=== PATIENT | female | born 1990 | race Caucasian/White ===

== ENCOUNTER 2020-05-12 07:28 | Emergency (ER) | payer OTHER ==
[2020-05-12 07:42] VITALS: O2SAT 98
--- NOTE | 2020-05-12 07:58 | ERPHSYRPT ---
- History of Present Illness Time Seen by Provider: 05/12/20 07:44 Source: patient Exam Limitations: no limitations Patient Subjective Stated Complaint: Pt states "I tripped last night and hurt my ankle." Triage Nursing Assessment: Pt presented alert and oriented X 3, skin pwd Pt able to sepak in clear full sentences. Pt right ankle lateral pain to touch and move. Physician History: Patient is a 29-year-old female presents to our ED with complaints of right ankle pain. Patient states she was "drinking" last night and twisted her ankle. Patient states the pain was not "that bad". Patient states she awoke this mo rning and experienced severe pain upon weightbearing. Pain described as an ache that is well localized primarily to the lateral aspect of her right ankle. Pain worse with movement weightbearing and palpation. Pain improved with rest. No other complaints. No foot pain. No knee or hip pain. Pain is mild to moderate in intensity. Patient has little pain at rest. Patient took 4 ibuprofen this morning prior to arrival. No associated numbness tingling or weakness. Patient voices no other complaints at this time. Method of Injury: twisted Occurred: yesterday Quality: intermittent Severity of Pain-Max: moderate Severity of Pain-Current: mild Lower Extremities Pain: ankle: right Modifying Factors: Improves With: movement, pain medication Associated Symptoms: none Allergies/Adverse Reactions: No Known Drug Allergies Allergy (Verified 05/12/20 07:41) Home Medications: Alprazolam 1 mg [Xanax 1 mg] 1 tab PO DAILY 05/12/20 [History] Ashford Carbonate 300 mg [Ashford Carbonate 300 MG] 300 mg PO DAILY 05/12/20 [History] Lurasidone HCl [Latuda] 80 mg PO DAILY 05/12/20 [History] Hx Tetanus, Diphtheria Vaccination/Date Given: Yes Hx Influenza Vaccination/Date Given: No Hx Pneumococcal Vaccination/Date Given: No Immunizations Up to Date: Yes Travel Risk - International Travel Have you traveled outside of the country in past 3 weeks: No - Coronavirus Screening Are you exhibiting any of the following symptoms?: No Close contact with a COVID-19 positive Pt in past 14-21 Days: No - Review of Systems Constitutional: No Symptoms, No Fever, No Chills Eyes: No Symptoms Ears, Nose, & Throat: No Symptoms Respiratory: No Symptoms, No Cough, No Dyspnea Cardiac: No Symptoms, No Chest Pain, No Edema, No Syncope Abdominal/Gastrointestinal: No Symptoms, No Abdominal Pain, No Nausea, No Vomiting, No Diarrhea Genitourinary Symptoms: No Symptoms, No Dysuria Musculoskeletal: No Symptoms, No Back Pain, No Neck Pain Skin: No Symptoms, No Rash Neurological: No Symptoms, No Dizziness, No Focal Weakness, No Sensory Changes Psychological: No Symptoms Endocrine: No Symptoms Hematologic/Lymphatic: No Symptoms Immunological/Allergic: No Symptoms All Other Systems: Reviewed and Negative - Past Medical History Pertinent Past Medical History: Yes Other Medical History: depression, anxiety - Past Surgical History Past Surgical History: Yes Other Surgical History: knee surgery - Social History Smoking Status: Current every day smoker How long have you smoked: years Exposure to second hand smoke: Yes Drug Use: none Patient Lives Alone: No - Female History Hx Last Menstrual Period: 4 months ago Hx Now: No - Nursing Vital Signs Nursing Vital Signs: Initial Vital Signs Temperature 97.6 F 05/12/20 07:34 Pulse Rate 94 H 05/12/20 07:34 Respiratory Rate 18 05/12/20 07:34 Blood Pressure 110/87 05/12/20 07:34 O2 Sat by Pulse Oximetry 98 05/12/20 07:34 Pain Scale Pain Intensity 8 - Physical Exam General Appearance: no apparent distress, alert Eyes, Ears, Nose, Throat Exam: normal ENT inspection, pharynx normal, moist mucous membranes Neck Exam: normal inspection, non-tender, full range of motion Cardiovascular/Respiratory Exam: normal breath sounds, regular rate/rhythm, no respiratory distress, normal peripheral pulses Gastrointestinal/Abdominal Exam: non-tender, soft, No tenderness Back Exam: normal inspection, No vertebral tenderness Hips Exam: bilateral: non-tender, normal inspection, normal range of motion, no evidence of injury Legs Exam: bilateral leg: non-tender, normal inspection, normal range of motion, no evidence of injury Knees Exam: bilateral knee: non-tender, normal inspection, normal range of motion, no evidence of injury Ankle Exam: right ankle: bone tenderness, pain, soft tissue tenderness, swelling, other (Tenderness to palpation at the lateral aspect of right ankle particularly over the right ATFL ligament. Overlying soft tissue intact. No open or draining lesions. Compartments are soft. Cap refill less than 2 seconds. Extremity is pink warm and well-perfused. No pain at the adjacent joints. Patient has no other complaints.) Foot Exam: bilateral foot: non-tender, normal inspection, normal range of motion, no evidence of injury Neuro/Tendon Exam: normal sensation, normal motor functions Mental Status Exam: alert, oriented x 3, cooperative Skin Exam: normal color, warm, dry SpO2 Interpretation: normal SpO2: 98 O2 Delivery: Room Air - Course Nursing assessment & vital signs reviewed: Yes - Radiology Exams Ankle X-ray Interpretation: Teleradiologist Report (Negative for fracture dislocation. Soft tissue swelling.) Ordered Tests: Active Orders 24 hr Category Date Time Status Splint STAT Care 05/12/20 08:29 Active ANKLE (3 VIEWS) Stat Exams 05/12/20 07:52 Taken - Progress Progress: improved Progress Note: 05/12/20 08:42 Patient reassessed. She is well. Pain well controlled. Patient took 800 mg of ibuprofen prior to arrival. Patient received bilateral axillary crutches as well as a right ankle air splint. Patient to follow-up with her primary care doctor within 48 hours for reevaluation. Counseled pt/family regarding: diagnosis, need for follow-up, rad results - Departure Departure Disposition: Home Clinical Impression: Ankle fracture Condition: Stable Critical Care Time: No Referrals: TINO BARRAZA [NON-STAFF Y W/O PRIVILEGES] - Instructions: Ankle Sprain (DC) Additional Instructions: Discharge/Care Plan ELSA WEEMS was seen on 05/12/20 in the Emergency Room. The patient was counseled regarding Diagnosis,Lab results, Imaging studies, need for follow up and when to return to the Emergency Room. Prescriptions given: Discharge Note I have spoken with the patient and/or caregivers. I have explained the patient's condition, diagnosis and treatment plan based on the information available to me at this time. I have answered the patient's and/or caregiver's questions and addressed any concerns. The patient and/or caregivers have as good understanding of the patient's diagnosis, condition and treatment plan as can be expected at this point. The vital signs have been stable. The patient's condition is stable and appropriate for discharge from the emergency department. The patient will pursue further outpatient evaluation with the primary care physician or other designated or consulting physician as outlined in the discharge instructions. The patient and/or caregivers are agreeable to this plan of care and follow-up instructions have been explained in detail. The patient and/or caregivers have received these instruction. The patient/and or caregivers are aware that any significant change in condition or worsening of symptoms should prompt an immediate return to this or the closest emergency department or call 911.
[2020-05-12 08:36] VITALS: BP 106/68; PULSE 88
--- NOTE | 2020-05-12 09:50 | XRAY ---
Indication: Pain following fall. Comparison: None 3 view right ankle demonstrates mild lateral soft tissue swelling and tiny plantar heel spur. No other bony, articular, or soft tissue abnormalities.
== END 2020-05-12 08:58 | disposition home or self-care (01) ==
LOC: ED 07:28
DX: S82.891A Other fracture of right lower leg, initial encounter for closed fracture (principal); X50.9XXA Other and unspecified overexertion or strenuous movements or postures, initial encounter; M25.571 Pain in right ankle and joints of right foot
CPT/HCPCS: 73610; 99283

== ENCOUNTER 2020-12-05 07:34 | Emergency (ER) | payer OTHER ==
[2020-12-05 08:11] LABS: Appearance SLIGHTLY CLOUDY (CLEAR); Bilirubin NEGATIVE (NEGATIVE); Blood NEGATIVE Ery/ul (0-5); Epithelial Cells RARE /HPF (FEW); Glucose NEGATIVE (NEGATIVE); Ketones NEGATIVE (NEGATIVE); Leukocyte Esterase NEGATIVE (NEGATIVE); Mucus SLIGHT /HPF (NEGATIVE); Nitrite NEGATIVE (NEGATIVE); Protein,Urine Dip 30 (Negative); Specific Gravity 1.026 (1.005-1.025); Urobilinogen 2 mg/dL (0-1); WBC 0-2 /HPF (0-5)
--- NOTE | 2020-12-05 08:33 | ERPHSYRPT ---
- History of Present Illness Time Seen by Provider: 12/05/20 07:40 Source: patient Exam Limitations: no limitations Patient Subjective Stated Complaint: belly button pain Triage Nursing Assessment: pt to ED c/o "belly button pain" onset yeterday. hx hernia just above umbilicus but has not had issues since she has lsot some weight. rates 1/10 pain now atrest but up to 6/10 when palpating umbilicus and changing position. "I can feel like a knot inside my belly button when I feel it." Physician History: Patient is a 30-year-old female presents to our ED with complaints of pain at her navel. Pain has been ongoing for 1 day. Patient has a history of umbilical hernia. Patient states that it feels as though her hernia has returned. Pain described as an ache that is well localized. No radiation. Pain improves upon rest. Pain worse with palpation. No trauma. No fever. No nausea or vomiting. No diarrhea. No rash. Symptoms are mild to moderate in intensity. Patient voices no other complaints or concerns at this time. Timing/Duration: yesterday Severity: moderate Modifying Factors: Improves With: nothing Associated Symptoms: denies symptoms Allergies/Adverse Reactions: No Known Drug Allergies Allergy (Verified 12/05/20 07:47) Home Medications: Alprazolam 1 mg [Xanax 1 mg] 1 tab PO DAILY 05/12/20 [History] Cariprazine HCl [Vraylar] 3 mg PO DAILY 12/05/20 [History] Hx Tetanus, Diphtheria Vaccination/Date Given: Yes Hx Influenza Vaccination/Date Given: No Hx Pneumococcal Vaccination/Date Given: No Immunizations Up to Date: Yes Travel Risk - International Travel Have you traveled outside of the country in past 3 weeks: No - Coronavirus Screening Are you exhibiting any of the following symptoms?: Yes Symptoms: Cough: New Onset Close contact with a COVID-19 positive Pt in past 14-21 Days: No - Review of Systems Constitutional: No Symptoms, No Fever, No Chills Eyes: No Symptoms Ears, Nose, & Throat: No Symptoms Respiratory: No Symptoms, No Cough, No Dyspnea Cardiac: No Symptoms, No Chest Pain, No Edema, No Syncope Abdominal/Gastrointestinal: No Symptoms, No Abdominal Pain, No Nausea, No Vomiting, No Diarrhea Genitourinary Symptoms: No Symptoms, No Dysuria Musculoskeletal: No Symptoms, No Back Pain, No Neck Pain Skin: No Symptoms, No Rash Neurological: No Symptoms, No Dizziness, No Focal Weakness, No Sensory Changes Psychological: No Symptoms Endocrine: No Symptoms Hematologic/Lymphatic: No Symptoms Immunological/Allergic: No Symptoms All Other Systems: Reviewed and Negative - Past Medical History Pertinent Past Medical History: Yes Psycho-Social History: Anxiety, Depression Other Medical History: depression, anxiety - Past Surgical History Past Surgical History: Yes Musculoskeletal: Orthopedic Surgery Female Surgical History: Dilation & Curettage Other Surgical History: L knee surgery - Social History Smoking Status: Current every day smoker How long have you smoked: since 16yo Exposure to second hand smoke: No Drug Use: marijuana Patient Lives Alone: No - Female History Hx Now: No (LMP 2 wks ago) - Nursing Vital Signs Nursing Vital Signs: Initial Vital Signs Temperature 98.2 F 12/05/20 07:39 Pulse Rate 91 H 12/05/20 07:39 Respiratory Rate 16 12/05/20 07:39 Blood Pressure 108/79 12/05/20 07:39 O2 Sat by Pulse Oximetry 91 L 12/05/20 07:39 Pain Scale Pain Intensity 1 - Physical Exam General Appearance: no apparent distress, alert Eye Exam: PERRL/EOMI, eyes nml inspection Ears, Nose, Throat Exam: normal ENT inspection, TMs normal, pharynx normal, moist mucous membranes Neck Exam: normal inspection, non-tender, supple, full range of motion Respiratory Exam: normal breath sounds, lungs clear, No respiratory distress Cardiovascular Exam: regular rate/rhythm, normal heart sounds, normal peripheral pulses Gastrointestinal/Abdomen Exam: soft, normal bowel sounds, No tenderness, No mass Back Exam: normal inspection, normal range of motion, No CVA tenderness, No vertebral tenderness Extremity Exam: normal inspection, normal range of motion, pelvis stable Neurologic Exam: alert, oriented x 3, cooperative, normal mood/affect, sensation nml, No motor deficits Skin Exam: normal color, warm, dry, No rash Lymphatic Exam: No adenopathy SpO2 Interpretation: borderline oxygenation SpO2: 91 O2 Delivery: Room Air - Course Nursing assessment & vital signs reviewed: Yes - CT Exams Abdomen/Pelvis CT Interpretation: Tele-radiologist Report (4 mm appendicolith, possible rupture/leaking cyst with small fluid in the cul-de-sac, punctate nonobstructing kidney stones, splenic calcified granuloma.) Ordered Tests: Active Orders 24 hr Category Date Time Status ABDOMEN AND PELVIS W/0 CONTRAS [CT] Stat Exams 12/05/20 07:50 Completed HCG,QUALITATIVE URINE Stat Lab 12/05/20 07:58 Completed UA W/RFX UR CULTURE Stat Lab 12/05/20 07:58 Completed Lab/Rad Data: Laboratory Results 12/05/20 12/05/20 Range/Units 07:58 07:58 Urine Color YELLOW (YELLOW) Urine Appearance SLIGHTLY CLOUDY (CLEAR) Urine pH 7.0 (5-6) Ur Specific [place] 1.026 (1.005-1.025) Urine Protein 30 (Negative) Urine Ketones NEGATIVE (NEGATIVE) Urine Blood NEGATIVE (0-5) Eulalio/ul Urine Nitrite NEGATIVE (NEGATIVE) Urine Bilirubin NEGATIVE (NEGATIVE) Urine Urobilinogen 2 (0-1) mg/dL Ur Leukocyte Esterase NEGATIVE (NEGATIVE) Urine WBC (Auto) 0-2 (0-5) /HPF Urine RBC (Auto) 3-5 (0-2) /HPF U Epithel Cells (Auto) RARE (FEW) /HPF Urine Bacteria (Auto) NONE (NEGATIVE) /HPF Urine Mucus (Auto) SLIGHT (NEGATIVE) /HPF Urine Culture Reflexed NO (NO) Urine Glucose NEGATIVE (NEGATIVE) mg/dL Urine HCG, Qual NEGATIVE (Negative) - Progress Progress: improved Progress Note: 12/05/20 09:51 Patient is a smoker. She has a history of chronic cough. Patient states she been coughing a little more frequently. Patient is currently on albuterol inhaler which was given to her by her [employer] doctor to address her coughing. This has improved her symptoms. But it is likely that her periumbilical pain is stemming from the constant coughing which is now gradually improving. Lungs are clear. No hernia observed on CT scan. Patient requesting discharge because she has to be worked at 11 AM. No indication for medications at this time. Patient aware of all of our findings as documented in our diagnoses of this chart. Patient agrees to follow-up with her primary care doctor within 48 hours. Patient understands that stopping smoking will help her symptoms. Patient states she is trying to stop smoking. Patient voices no other complaints at this time. She will follow-up with her primary care doctor as described. Will discharge at this time. Counseled pt/family regarding: lab results, diagnosis, need for follow-up, rad results, smoking cessation - Departure Departure Disposition: Home Clinical Impression: Periumbilical abdominal pain, Proteinuria, Appendicolith, Nephrolithiasis, Pelvic fluid collection Condition: Stable Critical Care Time: No Referrals: YAZMIN PASTOR MD [Primary Care Provider] - Additional Instructions: Discharge/Care Plan ELSA WEEMS was seen on 12/05/20 in the Emergency Room. The patient was counseled regarding Diagnosis,Lab results, Imaging studies, need for follow up and when to return to the Emergency Room. Prescriptions given: Discharge Note I have spoken with the patient and/or caregivers. I have explained the patient's condition, diagnosis and treatment plan based on the information available to me at this time. I have answered the patient's and/or caregiver's questions and addressed any concerns. The patient and/or caregivers have as good understanding of the patient's diagnosis, condition and treatment plan as can be expected at this point. The vital signs have been stable. The patient's condition is stable and appropriate for discharge from the emergency department. The patient will pursue further outpatient evaluation with the primary care physician or other designated or consulting physician as outlined in the discharge instructions. The patient and/or caregivers are agreeable to this plan of care and follow-up instructions have been explained in detail. The patient and/or caregivers have received these instruction. The patient/and or caregivers are aware that any significant change in condition or worsening of symptoms should prompt an immediate return to this or the closest emergency department or call 911.
[2020-12-05 08:59] VITALS: BP 92/44
[2020-12-05 09:03] VITALS: PULSE 69
[2020-12-05 09:24] VITALS: O2SAT 91
--- NOTE | 2020-12-05 09:29 | XRAY ---
Indication: Abdomen pain. Umbilical hernia. Multiple contiguous axial images obtained through the abdomen and pelvis without contrast as ordered. Comparison: None Lung bases demonstrates bibasilar dependent atelectasis. Heart is not enlarged. Noncontrasted stomach and bowel loops appear nonobstructed. Normal appendix with incidental 4 mm appendicolith. Small cul-de-sac free fluid presumed physiologic from rupture/leaking cyst. No free air. Right mid kidney demonstrates nonobstructing punctate calculus. Splenic calcified granulomas. Remaining liver, gallbladder, pancreas, spleen, adrenal glands, kidneys, ureters, bladder, uterus, and aorta appear unremarkable for noncontrast exam. Osseous structures intact. No ventral, umbilical, or inguinal hernias. Impression: 1. Cul-de-sac physiologic free fluid. 2. Appendicolith without appendicitis. 3. Nonobstructing right renal punctate calculus. 4. Remaining CT abdomen/pelvis without contrast exam is negative.
== END 2020-12-05 09:56 | disposition home or self-care (01) ==
LOC: ED 07:34
DX: R10.33 Periumbilical pain (principal); R80.9 Proteinuria, unspecified; N20.0 Calculus of kidney; R19.8 Other specified symptoms and signs involving the digestive system and abdomen; F17.200 Nicotine dependence, unspecified, uncomplicated
CPT/HCPCS: 74176; 81001; 84703; 99284

== ENCOUNTER 2021-12-24 09:52 | Emergency (ER) | payer OTHER ==
--- NOTE | 2021-12-24 10:22 | ERPHSYRPT ---
- History of Present Illness Time Seen by Provider: 12/24/21 10:15 Source: patient Exam Limitations: no limitations Patient Subjective Stated Complaint: Pt states "I did a home test and it was positive, I have a cough and a headache but I need a positive test for work." Triage Nursing Assessment: Pt presented alert and oriented X 3, skin wpd PT ambulates with an upright steady gait, able to speak in clear full sentences. Pt in no apaprent respiratory distress. Physician History: Pt developed URI symptoms with headache, and took home test which is positive for Covid. She needs the PCR test for her work as they are not accepting the home test. She has no SOBreath, N/V, or abd pain. minor very brief twinge in chest with cough nonradiating consistent with URI symptoms and not present at other times. normal pulse ox. Heart score <3. Percs out , (HR back down to 70s now). Chest clear. pharynx with erythema swolling OK no menigismus. no rash, no ext erythema or swelling neg homans. Discussed potential risks also to monitor for with covid including blood clots and also other risks for headaches to consider rule out and patient chooses outpt f/u with PCP rather than further workup in ER or hospital at this time for cardio/PE, intracrainial pathology and this is reasonable given findings and history as presenting. She is advised that additional pathology could be evolving and become serious, unserstands and has the capacity to make this choice. Timing/Duration: day(s) Cough Quality/Degree: mild, dry cough Possible Cause: no prior episodes Modifying Factors: Improves With: coughing Associated Symptoms: cough, headache, nasal congestion, nasal drainage, other (brief sharp twinge with cough), No lightheadedness, No shortness of breath Allergies/Adverse Reactions: No Known Drug Allergies Allergy (Verified 12/05/20 07:47) Home Medications: ALPRAZolam 1 MG [Xanax 1 mg] 1 tab PO DAILY 05/12/20 [History] Cariprazine HCl [Vraylar] 3 mg PO DAILY 12/05/20 [History] Hx Tetanus, Diphtheria Vaccination/Date Given: Yes Hx Influenza Vaccination/Date Given: No Hx Pneumococcal Vaccination/Date Given: No Immunizations Up to Date: Yes Travel Risk - International Travel Have you traveled outside of the country in past 3 weeks: No - Coronavirus Screening Are you exhibiting any of the following symptoms?: No Close contact with a COVID-19 positive Pt in past 14-21 Days: No - Vaccine Status Have you recieved a Covid-19 vaccination: Yes Cloth Shader: Pfizer - Vaccination Dates Date of 2cond Vaccination (if applicable): 07/2021 - Review of Systems Constitutional: Fatigue, No Fever, No Chills Eyes: No Symptoms Ears, Nose, & Throat: Nose Congestion, Nose Discharge Respiratory: Cough, No Dyspnea, No Stridor, No Wheezing Cardiac: No Chest Pain, No Edema, No Syncope Abdominal/Gastrointestinal: No Abdominal Pain, No Nausea, No Vomiting, No Diarrhea Genitourinary Symptoms: No Dysuria Musculoskeletal: No Back Pain, No Neck Pain Skin: No Rash Neurological: No Dizziness, No Focal Weakness, No Sensory Changes Psychological: No Symptoms Endocrine: No Symptoms Hematologic/Lymphatic: No Symptoms Immunological/Allergic: No Symptoms All Other Systems: Reviewed and Negative - Past Medical History Pertinent Past Medical History: Yes Psycho-Social History: Anxiety, Depression Other Medical History: depression, anxiety - Past Surgical History Past Surgical History: Yes Musculoskeletal: Orthopedic Surgery Female Surgical History: Dilation & Curettage Other Surgical History: L knee surgery - Social History Smoking Status: Current every day smoker How long have you smoked: since 16yo Exposure to second hand smoke: No Drug Use: marijuana Patient Lives Alone: No - Female History Hx Last Menstrual Period: 12/14/2020 Hx Now: No - Nursing Vital Signs Nursing Vital Signs: Initial Vital Signs Temperature 98.6 F 12/24/21 09:59 Pulse Rate 103 H 12/24/21 09:59 Respiratory Rate 20 12/24/21 09:59 Blood Pressure 144/89 12/24/21 09:59 O2 Sat by Pulse Oximetry 99 12/24/21 09:59 Pain Scale Pain Intensity 0 - Physical Exam General Appearance: no apparent distress, alert Eye Exam: PERRL/EOMI, eyes nml inspection Ears, Nose, Throat Exam: normal ENT inspection, TMs normal, pharynx normal, moist mucous membranes Neck Exam: normal inspection, non-tender, supple, full range of motion Respiratory Exam: normal breath sounds, lungs clear, No respiratory distress Cardiovascular Exam: regular rate/rhythm, normal heart sounds Gastrointestinal/Abdomen Exam: soft, No tenderness Pelvic Exam: deferred Rectal Exam: deferred Back Exam: normal inspection, No CVA tenderness, No vertebral tenderness Extremity Exam: normal inspection, normal range of motion Neurologic Exam: alert, oriented x 3, cooperative, normal mood/affect, sensation nml, No motor deficits Skin Exam: normal color, warm, dry, No rash Lymphatic Exam: No adenopathy SpO2: 99 - Course Nursing assessment & vital signs reviewed: Yes - Progress Air Movement: good Blood Culture(s) Obtained: No Antibiotics given: No Counseled pt/family regarding: diagnosis, need for follow-up - Departure Departure Disposition: Home Clinical Impression: COVID-19 Condition: Good Critical Care Time: No Referrals: YAZMIN PASTOR MD [Primary Care Provider] - Follow up/PCP as directed Instructions: Coronavirus Disease 2019 (COVID-19) (DC) Additional Instructions: followup for your test results and in contact with your Dr. Meanwhile self quarantine yourself and contacts. There is some increased risk of complications such as blood clots with Covid and so watch for any swelling or redness or shortness of breath. Return meantime if any symptoms of concern such as short of breath trouble swallowing more sever headache or chest pain or symptoms of concern. Followup with your to recheck blood pressure.
[2021-12-24 10:47] VITALS: BP 138/84; PULSE 94; O2SAT 98
== END 2021-12-24 11:02 | disposition home or self-care (01) ==
LOC: ED 09:52
DX: U07.1 COVID-19 (principal); R05.9 Cough, unspecified; R51.9 Headache, unspecified; R09.81 Nasal congestion; Z72.0 Tobacco use
CPT/HCPCS: 99283; U0003

== ENCOUNTER 2022-02-18 08:41 | Emergency (ER) | payer OTHER ==
--- NOTE | 2022-02-18 09:54 | ERPHSYRPT ---
- History of Present Illness Time Seen by Provider: 02/18/22 08:48 Source: patient Exam Limitations: no limitations Patient Subjective Stated Complaint: Patient states she had a positive test 02/14/22 and started bleeding 02/16/22. Describes the blood as dark. Unknown amount. Triage Nursing Assessment: Patient to ed for . States she has been bleeding since 02/16/22. Physician History: 31-year-old female presented in the ER with chief complaint of vaginal bleeding last 2 days. Patient does report she missed her routine cycle date and did home test on 14 February which was positive. Denies any pelvic cramping/pain/passing tissues. No urinary complaints. Wants to make sure she is or not. Allergies/Adverse Reactions: No Known Drug Allergies Allergy (Verified 02/18/22 09:20) Home Medications: ALPRAZolam 1 MG [Xanax 1 mg] 1 tab PO DAILY 05/12/20 [History] Cariprazine HCl [Vraylar] 3 mg PO DAILY 12/05/20 [History] Hx Tetanus, Diphtheria Vaccination/Date Given: Yes Hx Influenza Vaccination/Date Given: No Hx Pneumococcal Vaccination/Date Given: No Travel Risk - International Travel Have you traveled outside of the country in past 3 weeks: No - Coronavirus Screening Are you exhibiting any of the following symptoms?: No Close contact with a COVID-19 positive Pt in past 14-21 Days: No - Vaccine Status Have you recieved a Covid-19 vaccination: Yes 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[employer] - Vaccination Dates Date of 2cond Vaccination (if applicable): unknown - Review of Systems Constitutional: No Symptoms Ears, Nose, & Throat: No Symptoms Respiratory: No Symptoms Cardiac: No Symptoms Abdominal/Gastrointestinal: No Symptoms Genitourinary Symptoms: Vaginal Bleeding Musculoskeletal: No Symptoms Skin: No Symptoms Neurological: No Symptoms Psychological: No Symptoms Endocrine: No Symptoms Hematologic/Lymphatic: No Symptoms Immunological/Allergic: No Symptoms - Past Medical History Pertinent Past Medical History: Yes Psycho-Social History: Anxiety, Depression Other Medical History: depression, anxiety - Past Surgical History Past Surgical History: Yes Musculoskeletal: Orthopedic Surgery Female Surgical History: Dilation & Curettage Other Surgical History: L knee surgery - Social History Smoking Status: Current every day smoker How long have you smoked: since 16yo Exposure to second hand smoke: No Drug Use: marijuana Patient Lives Alone: No - Female History Hx Last Menstrual Period: 01/14/22 Hx Now: Yes - Nursing Vital Signs Nursing Vital Signs: Initial Vital Signs Temperature 98.2 F 02/18/22 09:10 Pulse Rate 80 02/18/22 09:10 Respiratory Rate 20 02/18/22 09:10 Blood Pressure 116/68 02/18/22 09:10 O2 Sat by Pulse Oximetry 97 02/18/22 09:10 Pain Scale Pain Intensity 0 - Physical Exam General Appearance: no apparent distress, alert Eye Exam: PERRL/EOMI, eyes nml inspection Ears, Nose, Throat Exam: normal ENT inspection, pharynx normal Neck Exam: normal inspection, full range of motion Respiratory Exam: normal breath sounds, lungs clear Cardiovascular Exam: regular rate/rhythm, normal heart sounds Gastrointestinal/Abdomen Exam: soft, normal bowel sounds, No tenderness Back Exam: normal inspection, normal range of motion Extremity Exam: normal inspection, normal range of motion Neurologic Exam: alert, oriented x 3, cooperative Skin Exam: normal color SpO2 Interpretation: normal SpO2: 97 O2 Delivery: Room Air Ordered Tests: Active Orders 24 hr Category Date Time Status OB TRANSVAGINAL [US] Stat Exams 02/18/22 11:27 Taken HCG, Quantitative (Inhouse) Stat Lab 02/18/22 09:40 Completed HCG,QUALITATIVE URINE Stat Lab 02/18/22 09:20 Completed Lab/Rad Data: Laboratory Results 02/18/22 02/18/22 Range/Units 09:40 09:20 Beta HCG, Quant 133.40 mIU/ml Urine HCG, Qual POSITIVE (Negative) - Progress Progress: unchanged Air Movement: good Progress Note: 02/18/22 11:31 Has positive urine test and hCG quant is in 130s, obtain ultrasound with preliminary report did not see any sac /Endometrial thickening. Recommended outpatient follow-up with serial hCG quant check. Discussed signs symptoms of worsening needing return to ER which she seems understanding. Blood Culture(s) Obtained: No Antibiotics given: No Counseled pt/family regarding: lab results, diagnosis, need for follow-up, rad results - Departure Departure Disposition: Home Clinical Impression: Vaginal bleeding Condition: Stable Critical Care Time: No Referrals: MARYBEL GARCIA NP [Primary Care Provider] - Follow up/PCP as directed KAMI ANTONIO [ACTIVE STAFF] - (In 2 days for reevaluation) Instructions: Bleeding With (DC), Ectopic (DC) Additional Instructions: Drink plenty of fluids to keep yourself well-hydrated. Follow-up with primary care for reevaluation and recheck of beta-hCG quant level. Return to ER for worsening vaginal bleeding or if having pelvic pain/cramping etc.
[2022-02-18 11:34] VITALS: BP 127/83; PULSE 68
[2022-02-18 11:35] VITALS: O2SAT 97
--- NOTE | 2022-02-18 18:17 | XRAY ---
Indication: Bleeding. Two-dimensional transvaginal pelvic sonogram performed. Comparison: None Uterus anteverted measuring 7.5 x 4.4 x 5.2 cm. Lower uterine segment demonstrates a 8 mm nabothian cyst. Endometrial stripe measures 2.6 mm. No endometrial cavity mass or fluid collection. Right ovary measures 2.4 x 1.8 x 3.4 cm and the left measures 2.1 x 1.9 x 2.9 cm. Normal follicular cysts and perfusion bilaterally. No suspicious adnexal mass or free fluid. Impression: Nabothian cyst. Remaining transvaginal pelvic sonogram is negative. Comment: Preliminary report was given.
== END 2022-02-18 11:42 | disposition home or self-care (01) ==
LOC: ED 08:41
DX: N93.9 Abnormal uterine and vaginal bleeding, unspecified (principal); Z72.0 Tobacco use; Z79.899 Other long term (current) drug therapy
CPT/HCPCS: 36415; 76817; 84702; 84703; 99283

== ENCOUNTER 2022-03-27 06:32 | Day surgery (SDC) | payer OTHER ==
[2022-03-27] MEDS ORDERED: Lactated Ringers 1,000 ML IV ONE (06:59)
[2022-03-27] MEDS ORDERED: Lactated Ringers 1,000 ML IV SCH (07:00)
[2022-03-27] MEDS ORDERED: CEFAZOLIN 2 GM-D5W BAG** 2 GM/50 ML ML IV ONE (07:18)
[2022-03-27] MEDS ORDERED: CEFAZOLIN 2 GM-D5W BAG** 2 GM/50 ML ML IV SCH (07:30)
[2022-03-27 07:53] LABS: ABO TYPING O; Antibody Screen NEGATIVE (NEGATIVE); RH TYPING POSITIVE
[2022-03-27] MEDS ORDERED: Versed 2 MG/2 ML Injection ONE (08:12)
[2022-03-27] MEDS ORDERED: SUBLIMAZE 100 MCG/2 ML ONE (08:17)
[2022-03-27] MEDS ORDERED: Decadron 4 MG INJ ONE (08:17)
[2022-03-27] MEDS ORDERED: Xylocaine-Mpf 2% 5 Ml Vial ONE (08:17)
[2022-03-27] MEDS ORDERED: Zofran 4 MG/2 ML VIAL ONE (08:17)
[2022-03-27] MEDS ORDERED: DIPRIVAN 200 MG/20 ML IV ONE (08:17)
[2022-03-27] MEDS ORDERED: Hydromorphone 1 mg/ml Injection ONE (09:18)
[2022-03-27 11:31] VITALS: BP 103/56; PULSE 67; O2SAT 98
--- NOTE | 2022-03-28 08:03 | OP ---
SURGERY DATE/TIME: 03/27/2022 0820 PREOPERATIVE DIAGNOSIS: Missed with retained tissue. POSTOPERATIVE DIAGNOSIS: Missed with retained tissue. PROCEDURE: Suction D&C. SURGEON: London Boss D.O. SASH REPAIRER: Lance Ferris certified surgical technician. ANESTHESIA: General. ESTIMATED BLOOD LOSS: Minimal. COMPLICATIONS: None. INDICATIONS: The risks, benefits, indications and alternatives of the procedure were reviewed with the patient prior to procedure. The patient understood the risk of infection, bleeding, bowel injury, bladder injury, ureteral injury, uterine perforation associated with this surgery and desires to have this surgery as a possible means to alleviate her current medical condition. DESCRIPTION OF PROCEDURE AND FINDINGS: At this point the patient is taken to the operating room, given general sedation, placed in dorsal lithotomy position, prepped and draped in the usual sterile fashion. A weighted speculum is then placed in the patient's vagina and the anterior lip of the cervix is grasped with a single tooth tenaculum. Endocervical dilators were advanced through the endocervical canal as means to dilate the cervix and at this point curved suction Vacurette was placed into the fundus of the uterus where the suction machine was turned on and Vacurette taken place retrieving a mild to moderate amount of tissue. After complete suctioning, the instrument was removed and the curette was then placed into the fundus of the uterus and curettage was performed retrieving the remaining endometrial tissue. From this point hemostasis was obtained. From this point again, all instruments were removed from the patient's vaginal region. The patient was taken out of the dorsal lithotomy position, was taken out of anesthesia and was then taken to the recovery room in stable condition. All instruments and laps were accounted for x2.
== END 2022-03-27 10:15 | disposition home or self-care (01) ==
LOC: SDC 06:32
PROVIDERS: ATTEND Obstetrics & Gynecology
DX: O02.1 Missed abortion (principal)
CPT/HCPCS: 36415; 84702; 86850; 86900; 86901; J0690; J1100; J1170; J2250; J2405; J2704; J3010

== ENCOUNTER 2023-06-25 08:34 | Emergency (ER) | payer OTHER ==
[2023-06-25 09:00] VITALS: RESP 18; TEMP 96.5
[2023-06-25] MEDS ORDERED: Zofran 4 MG/2 ML VIAL ONE (09:02)
[2023-06-25] MEDS ORDERED: Sodium Chloride 0.9% 1000 ML 1,000 ML ONE (09:02)
[2023-06-25] MEDS: Zofran 4 MG/2 ML VIAL IV ONE (09:04)
[2023-06-25] MEDS: Sodium Chloride 0.9% 1000 ML 1,000 ML IV STA (09:04)
--- NOTE | 2023-06-25 09:06 | ERPHSYRPT ---
- History of Present Illness Time Seen by Provider: 06/25/23 09:02 Source: patient Exam Limitations: no limitations Patient Subjective Stated Complaint: Vomiting Triage Nursing Assessment: Patient ambulated back to ED and transferred self to bed. Patient A+O X 3. Patient's skin pink, wram and dry. Patient complains of N/V since yesterday. Patient denies pain or discomfort or diarrhea. Abdomen soft and round with BS X 4. Physician History: Patient is a 32-year-old female presents to our ED for evaluation of nausea and vomiting. Symptoms started yesterday. Patient believes she is dehydrated. No abdominal pain. No fever. No other complaints. Patient she is otherwise healthy. Patient voices no other complaints or concerns at this time. Portions of this note were created with voice recognition technology. There may be grammatical, spelling, punctuation or sound alike errors Timing/Duration: yesterday Severity: moderate Modifying Factors: Improves With: nothing Associated Symptoms: denies symptoms, No chest pain, No fever Allergies/Adverse Reactions: No Known Drug Allergies Allergy (Verified 06/25/23 08:52) Home Medications: Lisdexamfetamine Dimesylate [Vyvanse] 1 tab PO DAILY 06/25/23 [History] Hx Tetanus, Diphtheria Vaccination/Date Given: Yes Hx Influenza Vaccination/Date Given: No Hx Pneumococcal Vaccination/Date Given: No Immunizations Up to Date: Yes Travel Risk - International Travel Have you traveled outside of the country in past 3 weeks: No - Coronavirus Screening Are you exhibiting any of the following symptoms?: No Close contact with a COVID-19 positive Pt in past 14-21 Days: No - Vaccine Status Have you recieved a Covid-19 vaccination: Yes 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[email or web address] - Vaccination Dates Date of 2cond Vaccination (if applicable): unknown - Review of Systems Constitutional: No Symptoms, No Fever, No Chills Eyes: No Symptoms Ears, Nose, & Throat: No Symptoms Respiratory: No Symptoms, No Cough, No Dyspnea Cardiac: No Symptoms, No Chest Pain, No Edema, No Syncope Abdominal/Gastrointestinal: No Symptoms, No Abdominal Pain, No Nausea, No Vomiting, No Diarrhea Genitourinary Symptoms: No Symptoms, No Dysuria Musculoskeletal: No Symptoms, No Back Pain, No Neck Pain Skin: No Symptoms, No Rash Neurological: No Symptoms, No Dizziness, No Focal Weakness, No Sensory Changes Psychological: No Symptoms Endocrine: No Symptoms Hematologic/Lymphatic: No Symptoms Immunological/Allergic: No Symptoms All Other Systems: Reviewed and Negative - Past Medical History Pertinent Past Medical History: Yes Neurological History: No Pertinent History ENT History: No Pertinent History Cardiac History: No Pertinent History Respiratory History: No Pertinent History Endocrine Medical History: No Pertinent History Musculoskeletal History: No Pertinent History GI Medical History: No Pertinent History History: No Pertinent History Psycho-Social History: Anxiety, Depression, Other Female Reproductive Disorders: No Pertinent History Other Medical History: depression, anxiety,bipolar - Past Surgical History Past Surgical History: Yes Neuro Surgical History: No Pertinent History Cardiac: No Pertinent History Respiratory: No Pertinent History Gastrointestinal: No Pertinent History Genitourinary: No Pertinent History Musculoskeletal: Orthopedic Surgery Female Surgical History: Dilation & Curettage Other Surgical History: L knee surgery - Social History Smoking Status: Light tobacco smoker How long have you smoked: years Exposure to second hand smoke: No Drug Use: marijuana, methamphetamines Patient Lives Alone: No - Female History Hx Last Menstrual Period: IUD Hx Now: No - Nursing Vital Signs Nursing Vital Signs: Initial Vital Signs Temperature 96.5 F 06/25/23 08:54 Pulse Rate 68 06/25/23 08:54 Respiratory Rate 18 06/25/23 08:54 Blood Pressure 127/92 06/25/23 08:54 O2 Sat by Pulse Oximetry 99 06/25/23 08:54 Pain Scale Pain Intensity 0 - Physical Exam General Appearance: no apparent distress, alert Eye Exam: PERRL/EOMI, eyes nml inspection Ears, Nose, Throat Exam: normal ENT inspection, TMs normal, pharynx normal, moist mucous membranes, other (Dry appearing oral mucous membranes) Neck Exam: normal inspection, non-tender, supple, full range of motion Respiratory Exam: normal breath sounds, lungs clear, airway intact, No respiratory distress Cardiovascular Exam: regular rate/rhythm, normal heart sounds, normal peripheral pulses Gastrointestinal/Abdomen Exam: soft, normal bowel sounds, No tenderness, No mass Back Exam: normal inspection, normal range of motion, No CVA tenderness, No vertebral tenderness Extremity Exam: normal inspection, normal range of motion, pelvis stable Neurologic Exam: alert, oriented x 3, cooperative, normal mood/affect, nml cerebellar function, nml station & gait, sensation nml, No motor deficits Skin Exam: normal color, warm, dry, No rash Lymphatic Exam: No adenopathy SpO2 Interpretation: normal SpO2: 99 O2 Delivery: Room Air - Course Nursing assessment & vital signs reviewed: Yes Ordered Tests: Active Orders 24 hr Category Date Time Status IV Insertion STAT Care 06/25/23 09:01 Active CBC W DIFF Stat Lab 06/25/23 08:58 Completed CMP Stat Lab 06/25/23 08:58 Completed UA W/RFX UR CULTURE Stat Lab 06/25/23 10:12 Received Medication Summary Discontinued Medications Generic Name Dose Route Start Last Admin Trade Name Freq PRN Reason Stop Dose Admin Sodium Chloride 1,000 mls @ 999 mls/hr 06/25/23 09:00 06/25/23 10:23 Sodium Chloride 0.9% 1000 Ml IV 06/25/23 10:00 Infused .Q1H1M STA Infusion Sodium Chloride Confirm 06/25/23 09:02 Sodium Chloride 0.9% 1000 Ml Administered 06/25/23 09:03 Dose 1,000 mls @ ud .ROUTE .STK-MED ONE Ondansetron HCl 4 mg 06/25/23 09:00 06/25/23 09:04 Ondansetron Hcl 4 Mg/2 Ml Vial IV 06/25/23 09:01 4 mg STAT ONE Administration Ondansetron HCl Confirm 06/25/23 09:02 Ondansetron Hcl 4 Mg/2 Ml Vial Administered 06/25/23 09:03 Dose 4 mg .ROUTE .STK-MED ONE Lab/Rad Data: Laboratory Result Diagrams 06/25/23 08:58 06/25/23 08:58 Laboratory Results 06/25/23 06/25/23 Range/Units 08:58 08:58 WBC 12.6 H (4.0-10.5) x10^3/uL RBC 5.82 H (4.1-5.4) x10^6/uL Hgb 17.2 H (12.0-16.0) g/dL Hct 50.4 H (35-47) % MCV 86.6 (78-100) fL MCH 29.6 (26-32) pg MCHC 34.1 (32-36) g/dL RDW 11.9 (11.5-14.0) % Plt Count 323 (150-450) x10^3/uL MPV 9.5 (7.5-11.0) fL Gran % 74.0 H (36.0-66.0) % Immature Gran % (Auto) 0.3 (0.00-0.4) % Nucleat RBC Rel Count 0.0 (0.00-0.1) % Eos # (Auto) 0.01 (0-0.5) x10^3/uL Immature Gran # (Auto) 0.04 H (0.00-0.03) x10^3u/L Absolute Lymphs (auto) 2.57 (1.0-4.6) x10^3/uL Absolute Monos (auto) 0.63 (0.0-1.3) x10^3/uL Absolute Nucleated RBC 0.00 (0.00-0.01) x10^3u/L Lymphocytes % 20.4 L (24.0-44.0) % Monocytes % 5.0 (0.0-12.0) % Eosinophils % 0.1 (0.00-5.0) % Basophils % 0.2 (0.0-0.4) % Absolute Granulocytes 9.33 H (1.4-6.9) x10^3/uL Basophils # 0.03 (0-0.4) x10^3/uL Sodium 139 (137-145) mmol/L Potassium 3.8 (3.5-5.1) mmol/L Chloride 97 L (98-107) mmol/L Carbon Dioxide 27 (22-30) mmol/L Anion Gap 18.4 H (5-15) MEQ/L BUN 13 (7-17) mg/dL Creatinine 0.84 (0.52-1.04) mg/dL Estimated GFR > 60.0 ML/MIN Glucose 120 H (74-106) mg/dL Calcium 10.8 H (8.4-10.2) mg/dL Total Bilirubin 1.00 (0.2-1.3) mg/dL AST 25 (14-36) U/L ALT 24 (0-35) U/L Alkaline Phosphatase 103 (38-126) U/L Serum Total Protein 8.8 H (6.3-8.2) g/dL Albumin 5.1 H (3.5-5.0) g/dL - Progress Progress: improved Progress Note: Patient is a 32-year-old female presents to our ED for evaluation of nausea and vomiting x1 day. Physical exam shows dry oral mucous membranes likely due to dehydration from vomiting. Patient received a liter normal saline and Zofran for nausea. CBC CMP UA ordered. CBC reveals a leukocytosis of 12.6. CMP essentially within normal limits. Urinalysis pending. However patient requesting discharge as she feels well. We will follow-up on urinalysis notify patient if there are any abnormalities. Patient otherwise feels well. She agrees to follow-up with her primary care doctor within 48 hours for r eevaluation. Portions of this note were created with voice recognition technology. There may be grammatical, spelling, punctuation or sound alike errors Complexity of problems addressed is moderate acute complicated No critical care time Complex of data reviewed and analyzed is moderate. Test ordered. Test reviewed and analyzed. Clinical correlation made between physical exam and test re sults. Patient appears to be experiencing some hemoconcentration with elevated WBC, polycythemia and slightly elevated anion gap. Patient was nauseous upon arrival. Patient received Zofran for nausea. Patient not drinking water and tolerating p.o. No vomiting. Risk of complication and risk morbidity/mortality of patient management is moderate. A prescription for Zofran is forwarded to patient's pharmacy. Patient agrees to follow-up with her primary care doctor within 48 hours for evaluation. Vital stable. Plan of care established for shared decision making. Time spent to discharge patient is approximately 15 minutes. No social determinants of health presents in pain follow-up. Patient voices no other complaints or concerns at this time. Portions of this note were created with voice recognition technology. There may be grammatical, spelling, punctuation or sound alike errors 06/25/23 10:28 Counseled pt/family regarding: lab results, diagnosis - Departure Departure Disposition: Home Clinical Impression: Nausea and vomiting, Dehydration, Polycythemia Condition: Stable Critical Care Time: No Referrals: BELA RODRIGUES [Primary Care Provider] - Follow up/PCP as directed Additional Instructions: Discharge/Care Plan ELSA WEEMS was seen on 06/25/23 in the Emergency Room. The patient was counseled regarding Diagnosis,Lab results, Imaging studies, need for follow up and when to return to the Emergency Room. Prescriptions given: Discharge Note I have spoken with the patient and/or caregivers. I have explained the patient's condition, diagnosis and treatment plan based on the information available to me at this time. I have answered the patient's and/or caregiver's questions and addressed any concerns. The patient and/or caregivers have as good understanding of the patient's diagnosis, condition and treatment plan as can be expected at this point. The vital signs have been stable. The patient's condition is stable and appropriate for discharge from the emergency department. The patient will pursue further outpatient evaluation with the primary care physician or other designated or consulting physician as outlined in the discharge instructions. The patient and/or caregivers are agreeable to this plan of care and follow-up instructions have been explained in detail. The patient and/or caregivers have received these instruction. The patient/and or caregivers are aware that any significant change in condition or worsening of symptoms should prompt an immediate return to this or the closest emergency department or call 911. Prescriptions: Ondansetron ODT 4 MG [Zofran Odt 4 mg] 4 mg PO Q6H PRN PRN #10 tablet PRN Reason: Vomiting
[2023-06-25 09:12] LABS: Absolute Neutrophil Ct (ANC) 9.33 x10^3/uL (1.4-6.9); BASOPHIL % 0.2 % (0.0-0.4); Basophil (Absolute #) 0.03 x10^3/uL (0-0.4); Eosinophil % 0.1 % (0.00-5.0); Eosinophil (Absolute #) 0.01 x10^3/uL (0-0.5); Hematocrit 50.4 % (35-47); Hemoglobin 17.2 g/dL (12.0-16.0); IMMATURE GRAN # 0.04 x10^3u/L (0.00-0.03); IMMATURE GRAN % 0.3 % (0.00-0.4); Lymphocyte (Absolute #) 2.57 x10^3/uL (1.0-4.6); Lymphocytes % 20.4 % (24.0-44.0); Mean Cell Volume 86.6 fL (78-100); Mean Corpuscular Hemoglobin 29.6 pg (26-32); Mean Corpuscular Hgb Concent. 34.1 g/dL (32-36); Mean Platelet Volume 9.5 fL (7.5-11.0); Monocyte (Absolute #) 0.63 x10^3/uL (0.0-1.3); Platelet Count 323 x10^3/uL (150-450); Red Blood Count 5.82 x10^6/uL (4.1-5.4); Red Cell Distribution Width 11.9 % (11.5-14.0); White Blood Count 12.6 x10^3/uL (4.0-10.5)
[2023-06-25 09:28] LABS: ALBUMIN 5.1 g/dL (3.5-5.0); ALKALINE PHOSPHATASE 103 U/L (38-126); ANION GAP 18.4 MEQ/L (5-15); BLOOD UREA NITROGEN 13 mg/dL (7-17); CHLORIDE 97 mmol/L (98-107); Calcium 10.8 mg/dL (8.4-10.2); Carbon Dioxide 27 mmol/L (22-30); Creatinine 1 0.84 mg/dL (0.52-1.04); EST GLOMERULAR FILTRATION RATE > 60.0 ML/MIN; Glucose 120 mg/dL (74-106); Potassium 3.8 mmol/L (3.5-5.1); SGOT/AST 25 U/L (14-36); SGPT/ALT 24 U/L (0-35); SODIUM 139 mmol/L (137-145); Total Protein 8.8 g/dL (6.3-8.2)
[2023-06-25 10:14] VITALS: BP 156/76; PULSE 101
[2023-06-25 10:24] LABS: ADD URINE CULTURE? YES (NO); Appearance Turbid (Clear); Bacteria Many /HPF (None Seen); Bilirubin Negative (Negative); Blood Moderate (Negative); Epithelial Cells Many /HPF (None Seen); Glucose, Urine Negative (Negative); Ketones >=160 (Negative); Leukocyte Esterase Small (Negative); Nitrite Negative (Negative); Ph 6.5 (4.6-8.0); Protein,Urine Dip 30 (Negative); RBC 21-50 /HPF (0-5); Specific Gravity >=1.030 (1.005-1.030); Urobilinogen 0.2 mg/dL (0.2); WBC 21-50 /HPF (0-5)
[2023-06-25 10:31] VITALS: O2SAT 99
== END 2023-06-25 10:30 | disposition home or self-care (01) ==
LOC: ED 08:34
DX: R11.2 Nausea with vomiting, unspecified (principal); E86.0 Dehydration; D75.1 Secondary polycythemia; N39.0 Urinary tract infection, site not specified; Z79.899 Other long term (current) drug therapy; Z72.0 Tobacco use
CPT/HCPCS: 36000; 36415; 80053; 81001; 85025; 87086; 96360; 96374; 99284; J2405

== ENCOUNTER 2024-01-29 10:20 | Emergency (ER) | payer OTHER ==
--- NOTE | 2024-01-29 11:50 | ERPHSYRPT ---
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[employer] - Vaccination Dates Date of 2cond Vaccination (if applicable): unknown - Past Medical History Pertinent Past Medical History: Yes Neurological History: No Pertinent History ENT History: No Pertinent History Cardiac History: No Pertinent History Respiratory History: No Pertinent History Endocrine Medical History: No Pertinent History Musculoskeletal History: No Pertinent History GI Medical History: No Pertinent History History: No Pertinent History Psycho-Social History: Anxiety, Depression, Other Female Reproductive Disorders: No Pertinent History Other Medical History: depression, anxiety,bipolar - Past Surgical History Past Surgical History: Yes Neuro Surgical History: No Pertinent History Cardiac: No Pertinent History Respiratory: No Pertinent History Gastrointestinal: No Pertinent History Genitourinary: No Pertinent History Musculoskeletal: Orthopedic Surgery Female Surgical History: Dilation & Curettage Other Surgical History: L knee surgery - Social History Smoking Status: Light tobacco smoker How long have you smoked: years Exposure to second hand smoke: No Drug Use: marijuana, methamphetamines Patient Lives Alone: No - Departure Departure Disposition: Left without being seen Clinical Impression: Psychiatric complaint Condition: Stable Critical Care Time: No Referrals: YAZMIN PASTOR MD [Primary Care Provider] - Follow up/PCP as directed
== END 2024-01-29 11:07 | disposition left against medical advice (07) ==
LOC: ED 10:20
DX: Z53.8 Procedure and treatment not carried out for other reasons (principal)

== ENCOUNTER 2025-03-29 10:10 | Emergency (ER) | payer OTHER ==
[2025-03-29 10:33] VITALS: TEMP 97.9
[2025-03-29] MEDS ORDERED: Sodium Chloride 0.9% 1000 ML 1,000 ML ONE (10:59)
[2025-03-29] MEDS ORDERED: Hydromorphone 1 mg/ml Injection ONE ×2 (10:59→12:03)
[2025-03-29] MEDS ORDERED: Zofran 4 MG/2 ML VIAL ONE ×2 (10:59→16:58)
[2025-03-29] MEDS: Sodium Chloride 0.9% 1000 ML 1,000 ML IV STA (11:00)
[2025-03-29] MEDS: Zofran 4 MG/2 ML VIAL IV ONE (11:01)
[2025-03-29] MEDS: Hydromorphone 1 mg/ml Injection IV ONE ×2 (11:01→12:05)
[2025-03-29] MEDS ORDERED: TORAdol 30 mg Injection ONE ×2 (11:06→15:46)
[2025-03-29] MEDS: TORAdol 30 mg Injection IV ONE (11:07)
[2025-03-29 11:09] LABS: BASOPHIL % 0.5 % (0.1-1.2); Basophil (Absolute #) 0.04 x10^3/uL (0.01-0.08); Eosinophil % 0.3 % (0.7-5.8); Eosinophil (Absolute #) 0.02 x10^3/uL (0.04-0.36); Hematocrit 38.5 % (34.1-44.9); Hemoglobin 13.5 g/dL (11.2-15.7); IMMATURE GRAN # 0.02 x10^3u/L (0.001-0.031); IMMATURE GRAN % 0.3 % (0.001-0.429); Lymphocyte (Absolute #) 1.39 x10^3/uL (1.18-3.74); Lymphocytes % 18.7 % (19.3-51.7); Mean Cell Volume 85.2 fL (79.4-94.8); Mean Corpuscular Hemoglobin 29.9 pg (25.6-32.2); Mean Corpuscular Hgb Concent. 35.1 g/dL (32.2-35.5); Mean Platelet Volume 9.9 fL (9.4-12.3); Monocyte (Absolute #) 0.35 x10^3/uL (0.24-0.86); Monocytes % 4.7 % (4.7-12.5); Neutrophil % 75.5 % (34.0-71.1); Platelet Count 249 x10^3/uL (182-369); Red Blood Count 4.52 x10^6/uL (3.93-5.22); Red Cell Distribution Width 13.2 % (11.7-14.4); White Blood Count 7.4 x10^3/uL (3.98-10.04)
[2025-03-29] MEDS ORDERED: Ativan 2 MG/1 ML VIAL ONE (11:21)
[2025-03-29 11:23] LABS: ALBUMIN 4.4 g/dL (3.5-5.0); ANION GAP 14.5 MEQ/L (5-15); BILIRUBIN,TOTAL 0.6 mg/dL (0.2-1.3); Calcium 9.3 mg/dL (8.4-10.2); Creatinine 1 0.75 mg/dL (0.52-1.04); EST GLOMERULAR FILTRATION RATE 107.1 ML/MIN; Total Protein 6.9 g/dL (6.3-8.2)
[2025-03-29] MEDS: Ativan 2 MG/1 ML VIAL IV ONE (11:23)
[2025-03-29 11:30] LABS: HCG SERUM TEST POSITIVE (NEGATIVE)
[2025-03-29 13:13] LABS: Appearance BLOODY (CLEAR); Bilirubin MODERATE (NEGATIVE); Glucose NEGATIVE (NEGATIVE); Ketones >=160 (NEGATIVE); Ph 8.5 (5-6); Protein,Urine Dip >=300 (Negative); RBC LARGE Ery/ul (0-5); Specific Gravity 1.025 (1.005-1.025); Urobilinogen 1 mg/dL (0-1)
[2025-03-29 13:14] LABS: Nitrite POSITIVE (NEGATIVE)
[2025-03-29 13:16] LABS: Bacteria Few /HPF (None Seen); Epithelial Cells None Seen /HPF (None Seen); RBC >100 /HPF (0-5)
--- NOTE | 2025-03-29 13:45 | ERPHSYRPT ---
- History of Present Illness Source: patient Exam Limitations: no limitations Patient Subjective Stated Complaint: Pt states, "I started having pain in my lt. side/abdomen last night, it feels like something is spasming and moving at the same time. I have been on my period x 2 weeks, I'm on ozempic but i haven't had a dose increase in 2 weeks or a shot in a week." Triage Nursing Assessment: pt. ambulated to room unable to stand upright, A&O x 3, Skin P/W/D, resp. even unlabored, guarding left lower abdomen, no edema noted, unable to void. Physician History: Patient has been having unusual vaginal bleeding for about 2 weeks. Has been fairly light but persistent. She does not know when her last period was actually. Last night she started having some left adnexal pain. It has intensified and she decided to come in. She does not have any fever or chills. She says is unlikely that she is . The pain is in the left adnexal area tenderness some walking and palpation occur.Nothing really makes The symptoms better. Timing/Duration: yesterday Activites at Onset: none Severity of Pain-Max: severe Severity of Pain-Current: moderate Prior abdominal problems: none Modifying Factors: Improves With: nothing Associated Symptoms: denies symptoms Allergies/Adverse Reactions: No Known Drug Allergies Allergy (Verified 06/25/23 08:52) Home Medications: Cariprazine HCl [Vraylar] 3 mg PO DAILY 03/29/25 [History] Dextroamphetamine/Amphetamine [Mydayis ER 25 mg Capsule] 25 mg PO DAILY 03/29/25 [History] Trazodone HCl 150 mg PO QHS 03/29/25 [History] Hx Tetanus, Diphtheria Vaccination/Date Given: No Hx Influenza Vaccination/Date Given: No Hx Pneumococcal Vaccination/Date Given: No Travel Risk - International Travel Have you traveled outside of the country in past 3 weeks: No - Emerging Infectious Disease Are you exhibiting symptoms associated with any current EIDs: No - Review of Systems Constitutional: No Symptoms Eyes: No Symptoms Musculoskeletal: No Symptoms Skin: No Symptoms All Other Systems: Reviewed and Negative - Past Medical History Pertinent Past Medical History: Yes Neurological History: No Pertinent History ENT History: No Pertinent History Cardiac History: No Pertinent History Respiratory History: No Pertinent History Endocrine Medical History: No Pertinent History Musculoskeletal History: No Pertinent History GI Medical History: No Pertinent History History: No Pertinent History Psycho-Social History: Anxiety, Depression, Other Female Reproductive Disorders: No Pertinent History Other Medical History: depression, anxiety,bipolar - Past Surgical History Past Surgical History: Yes Neuro Surgical History: No Pertinent History Cardiac: No Pertinent History Respiratory: No Pertinent History Gastrointestinal: No Pertinent History Genitourinary: No Pertinent History Musculoskeletal: Orthopedic Surgery Female Surgical History: Dilation & Curettage Other Surgical History: L knee surgery - Female History Hx Last Menstrual Period: current Hx Now: No - Social History Smoking Status: Light tobacco smoker How long have you smoked: years Exposure to second hand smoke: No Drug Use: none - Social Determinants of Health Will the patient participate in the screening: Declined to provide - Nursing Vital Signs Nursing Vital Signs: Initial Vital Signs Temperature 97.9 F 03/29/25 10:10 Pulse Rate 77 03/29/25 10:10 Respiratory Rate 18 03/29/25 10:10 Blood Pressure 125/80 03/29/25 10:10 O2 Sat by Pulse Oximetry 100 03/29/25 10:10 Pain Scale Pain Intensity 4 - Physical Exam General Appearance: no apparent distress Eye Exam: PERRL/EOMI Neck Exam: normal inspection Respiratory Exam: normal breath sounds, lungs clear, No chest tenderness Cardiovascular Exam: regular rate/rhythm Gastrointestinal/Abdomen Exam: soft, normal bowel sounds, tenderness (Left lower quadrant) Pelvic Exam: deferred (And lieu of ultrasound) Rectal Exam: not done Back Exam: normal inspection Extremity Exam: normal inspection Skin Exam: normal color SpO2: 100 - Course Nursing assessment & vital signs reviewed: Yes Ordered Tests: Active Orders 24 hr Category Date Time Status OB TRANSVAGINAL [US] Stat Exams 03/29/25 11:37 Completed CBC W DIFF Stat Lab 03/29/25 11:08 Completed CMP Stat Lab 03/29/25 11:08 Completed CULTURE,URINE Stat Lab 03/29/25 10:55 Received HCG QUALITATIVE, SERUM Stat Lab 03/29/25 11:08 Completed HCG, Quantitative (Inhouse) Stat Lab 03/29/25 11:08 Completed Medication Summary Generic Name Dose Route Start Last Admin Trade Name Freq PRN Reason Stop Dose Admin Lactated Ringer's 1,000 mls @ 0 mls/hr 03/29/25 14:00 03/29/25 14:28 Lactated Ringers IV 04/28/25 13:59 30 mls/hr .Q0M ANUPAMA Administration KVO Discontinued Medications Generic Name Dose Route Start Last Admin Trade Name [place] PRN Reason Stop Dose Admin Fentanyl Citrate Confirm 03/29/25 13:47 Fentanyl Citrate 100 Mcg/2 Ml* Vial Administered 03/29/25 13:48 Dose 100 mcg .ROUTE .STK-MED ONE Hydromorphone HCl 1 mg 03/29/25 10:55 03/29/25 11:01 Hydromorphone 1 Mg/1ml Inj IV 03/29/25 10:56 1 mg STAT ONE Administration Hydromorphone HCl Confirm 03/29/25 10:59 Hydromorphone 1 Mg/1ml Inj Administered 03/29/25 11:00 Dose 1 mg .ROUTE .STK-MED ONE Hydromorphone HCl 1 mg 03/29/25 12:02 03/29/25 12:05 Hydromorphone 1 Mg/1ml Inj IV 03/29/25 12:03 1 mg STAT ONE Administration Hydromorphone HCl Confirm 03/29/25 12:03 Hydromorphone 1 Mg/1ml Inj Administered 03/29/25 12:04 Dose 1 mg .ROUTE .STK-MED ONE Sodium Chloride 1,000 mls @ 999 mls/hr 03/29/25 10:55 03/29/25 11:55 Sodium Chloride 0.9% 1000 Ml IV 03/29/25 11:55 Infused .Q1H1M STA Infusion Sodium Chloride Confirm 03/29/25 10:59 Sodium Chloride 0.9% 1000 Ml Administered 03/29/25 11:00 Dose 1,000 mls @ ud .ROUTE .STK-MED ONE Ketorolac Tromethamine 30 mg 03/29/25 11:06 03/29/25 11:07 Ketorolac Tromethamine 30 Mg/Ml Inj IV 03/29/25 11:07 30 mg STAT ONE Administration Ketorolac Tromethamine Confirm 03/29/25 11:06 Ketorolac Tromethamine 30 Mg/Ml Inj Administered 03/29/25 11:07 Dose 30 mg .ROUTE .STK-MED ONE Lorazepam 1 mg 03/29/25 11:11 03/29/25 11:23 Lorazepam 2 Mg/1 Ml 2 Mg Vial IV 03/29/25 11:12 1 mg STAT ONE Administration Lorazepam Confirm 03/29/25 11:21 Lorazepam 2 Mg/1 Ml 2 Mg Vial Administered 03/29/25 11:22 Dose 2 mg .ROUTE .STK-MED ONE Midazolam HCl Confirm 03/29/25 13:48 Midazolam Hcl 2 Mg/2 Ml Vial Administered 03/29/25 13:49 Dose 2 mg .ROUTE .STK-MED ONE Ondansetron HCl 4 mg 03/29/25 10:55 03/29/25 11:01 Ondansetron Hcl 4 Mg/2 Ml Vial IV 03/29/25 10:56 4 mg STAT ONE Administration Ondansetron HCl Confirm 03/29/25 10:59 Ondansetron Hcl 4 Mg/2 Ml Vial Administered 03/29/25 11:00 Dose 4 mg .ROUTE .STK-MED ONE Propofol Confirm 03/29/25 13:47 Propofol 200 Mg/20 Ml Vial Administered 03/29/25 13:48 Dose 200 mg IV .STK-MED ONE Rocuronium [place] Confirm 03/29/25 13:47 Rocuronium [place] 50 Mg/5 Ml Vial Administered 03/29/25 13:48 Dose 50 mg IV .STK-MED ONE Lab/Rad Data: Laboratory Result Diagrams 03/29/25 11:08 03/29/25 11:08 Laboratory Results 03/29/25 03/29/25 03/29/25 Range/Units 11:08 11:08 11:08 WBC (3.98-10.04) x10^3/uL RBC (3.93-5.22) x10^6/uL Hgb (11.2-15.7) g/dL Hct (34.1-44.9) % MCV (79.4-94.8) fL MCH (25.6-32.2) pg MCHC (32.2-35.5) g/dL RDW (11.7-14.4) % Plt Count (182-369) x10^3/uL MPV (9.4-12.3) fL Gran % (34.0-71.1) % Immature Gran % (Auto) (0.001-0.429) % Nucleat RBC Rel Count (0.00-0.2) % Eos # (Auto) (0.04-0.36) x10^3/uL Immature Gran # (Auto) (0.001-0.031) x10^3u/L Absolute Lymphs (auto) (1.18-3.74) x10^3/uL Absolute Monos (auto) (0.24-0.86) x10^3/uL Absolute Nucleated RBC (0.00-0.012) x10^3u/L Lymphocytes % (19.3-51.7) % Monocytes % (4.7-12.5) % Eosinophils % (0.7-5.8) % Basophils % (0.1-1.2) % Absolute Granulocytes (1.56-6.13) x10^3/uL Basophils # (0.01-0.08) x10^3/uL Sodium 137 (135-145) mmol/L Potassium 4.0 (3.5-5.1) mmol/L Chloride 104 (98-107) mmol/L Carbon Dioxide 22 (22-30) mmol/L Anion Gap 14.5 (5-15) MEQ/L BUN 6 L (7-17) mg/dL Creatinine 0.75 (0.52-1.04) mg/dL Estimated GFR 107.1 ML/MIN Glucose 99 (74-106) mg/dL Calcium 9.3 (8.4-10.2) mg/dL Total Bilirubin 0.60 (0.2-1.3) mg/dL AST 26 (14-36) U/L ALT 15 (0-35) U/L Alkaline Phosphatase 72 (38-126) U/L Serum Total Protein 6.9 (6.3-8.2) g/dL Albumin 4.4 (3.5-5.0) g/dL Serum HCG, Qual POSITIVE (NEGATIVE) Beta HCG, Quant 174.06 mIU/ml Urine Color (YELLOW) Urine Appearance (CLEAR) Urine pH (5-6) Ur Specific [place] (1.005-1.025) POC Urine Protein Conf (Negative) Urine Ketones (NEGATIVE) Urine Nitrite (NEGATIVE) Urine Bilirubin (NEGATIVE) Urine Urobilinogen (0-1) mg/dL Urine Leukocytes (NEGATIVE) Urine RBC (0-5) Eulalio/ul Urine Microscopic RBC (0-5) /HPF Urine Microscopic WBC (0-5) /HPF Ur Epithelial Cells (None Seen) /HPF Urine Bacteria (None Seen) /HPF Urine Culture Reflexed (NO) Urine Glucose (NEGATIVE) mg/dL 03/29/25 03/29/25 Range/Units 11:08 10:55 WBC 7.4 (3.98-10.04) x10^3/uL RBC 4.52 (3.93-5.22) x10^6/uL Hgb 13.5 (11.2-15.7) g/dL Hct 38.5 (34.1-44.9) % MCV 85.2 (79.4-94.8) fL MCH 29.9 (25.6-32.2) pg MCHC 35.1 (32.2-35.5) g/dL RDW 13.2 (11.7-14.4) % Plt Count 249 (182-369) x10^3/uL MPV 9.9 (9.4-12.3) fL Gran % 75.5 H (34.0-71.1) % Immature Gran % (Auto) 0.3 (0.001-0.429) % Nucleat RBC Rel Count 0.0 (0.00-0.2) % Eos # (Auto) 0.02 L (0.04-0.36) x10^3/uL Immature Gran # (Auto) 0.02 (0.001-0.031) x10^3u/L Absolute Lymphs (auto) 1.39 (1.18-3.74) x10^3/uL Absolute Monos (auto) 0.35 (0.24-0.86) x10^3/uL Absolute Nucleated RBC 0.00 (0.00-0.012) x10^3u/L Lymphocytes % 18.7 L (19.3-51.7) % Monocytes % 4.7 (4.7-12.5) % Eosinophils % 0.3 L (0.7-5.8) % Basophils % 0.5 (0.1-1.2) % Absolute Granulocytes 5.60 (1.56-6.13) x10^3/uL Basophils # 0.04 (0.01-0.08) x10^3/uL Sodium (135-145) mmol/L Potassium (3.5-5.1) mmol/L Chloride (98-107) mmol/L Carbon Dioxide (22-30) mmol/L Anion Gap (5-15) MEQ/L BUN (7-17) mg/dL Creatinine (0.52-1.04) mg/dL Estimated GFR ML/MIN Glucose (74-106) mg/dL Calcium (8.4-10.2) mg/dL Total Bilirubin (0.2-1.3) mg/dL AST (14-36) U/L ALT (0-35) U/L Alkaline Phosphatase (38-126) U/L Serum Total Protein (6.3-8.2) g/dL Albumin (3.5-5.0) g/dL Serum HCG, Qual (NEGATIVE) Beta HCG, Quant mIU/ml Urine Color RED A (YELLOW) Urine Appearance BLOODY A (CLEAR) Urine pH 8.5 A (5-6) Ur Specific [place] 1.025 (1.005-1.025) POC Urine Protein Conf >=300 A (Negative) Urine Ketones >=160 A (NEGATIVE) Urine Nitrite POSITIVE A (NEGATIVE) Urine Bilirubin MODERATE A (NEGATIVE) Urine Urobilinogen 1 A (0-1) mg/dL Urine Leukocytes LARGE A (NEGATIVE) Urine RBC LARGE A (0-5) Eulalio/ul Urine Microscopic RBC >100 A (0-5) /HPF Urine Microscopic WBC 11-20 A (0-5) /HPF Ur Epithelial Cells None Seen (None Seen) /HPF Urine Bacteria Few A (None Seen) /HPF Urine Culture Reflexed YES (NO) Urine Glucose NEGATIVE (NEGATIVE) mg/dL - Progress Progress: re-examined, unchanged Air Movement: good Progress Note: On the differential was intrauterine , ectopic , kidney stone, pyelonephritis, diverticulitis. I got some routine labs that showed she was . This time ectopic was #1 on the differential. We got a ultrasound and it confirmed the diagnosis. I called He agreed to take the patient for an exploratory surgery.I am going to go ahead and type and Screening the patient.At this time her vital signs are stable and she has a hemoglobin of 13. I think there is there is a rupture. Her symptoms have not really intensified. She had a hCG of 175. I got ultrasound and it showed a mass consistent with a ectopic . I notified . He is going to take the patient for an exploratory surgery. 03/29/25 13:44 03/29/25 14:43 Medical Desision Making - Risk of complications The pt has a mod risk of morbidity or mortality based on: Need for major surgery in otherwise healthy patient - Departure Departure Disposition: Home Clinical Impression: Ectopic Condition: Good Critical Care Time: No Referrals: YAZMIN PASTOR MD [Primary Care Provider, INTERNAL MEDICINE] - Follow up/PCP as directed
--- NOTE | 2025-03-29 13:46 | XRAY ---
Indication: Pelvic pain. Bleeding. . Two-dimensional transvaginal early OB ultrasound performed. Comparison: None for this . Uterus anteverted measuring 7.8 x 5.0 x 5.6 cm with incidental 7 mm cervical nabothian cyst. Endometrial stripe measures 10.3 mm. No intrauterine mass, fluid collection, gestational sac, pole, or heart tones. Neither ovaries are clearly visualized. Left adnexa demonstrates 4.2 x 2.8 x 6.4 cm heterogeneous echogenic mass with petechial color Doppler flow and adjacent small low-level echogenic free fluid. Impression: 1. Negative for intrauterine . 2. Nonvisualization both ovaries. 3. Small left adnexa heterogeneous echogenic mass with small free fluid, possibly ovary in etiology. Rule out hemorrhagic/complex cyst, endometrioma, tubo-ovarian abscess, and benign/malignant malignancies. Doubt ectopic .
[2025-03-29] MEDS ORDERED: propofoL IV ONE (13:47)
[2025-03-29] MEDS ORDERED: SUBLIMAZE 100 MCG/2 ML ONE ×2 (13:47→16:49)
[2025-03-29] MEDS ORDERED: ROCURONIUM BROMIDE IV ONE (13:47)
[2025-03-29] MEDS ORDERED: Versed 2 MG/2 ML Injection ONE ×2 (13:48→15:17)
[2025-03-29 14:26] VITALS: RESP 18
[2025-03-29] MEDS: Lactated Ringers 1,000 ML IV SCH (14:28)
[2025-03-29 14:46] VITALS: O2SAT 100
[2025-03-29 14:56] VITALS: BP 114/78; PULSE 94
[2025-03-29 14:56] LABS: ABO TYPING O; Antibody Screen NEGATIVE (NEGATIVE); RH TYPING POSITIVE
--- NOTE | 2025-03-29 15:04 | PCM.HP ---
History of Present Illness - Chief Complaint History of Present Illness: is a 34 year old female. 34 ylo unsure of lmp co vaginal bleeding the past couple weeks with pelvic discomfort. pt presented to er for evaluation of pelvic discomfort and was noted having a beta of 174 with moderate fluid in [place] with suspected left sided ectopic with 4x6 cm left sided adnexal mass where visualization could not reveal b/l ovaries. pt was also noted having fluid underneath adnexal mass. hx of x 2 with no hx of previous ectopic vss afebrile abd; soft ext; no clubbing cyanosis or edema hgb ; 13 beta 174 sono showing left adnexal mass 4x6 cm with hyperechogenicity moderate fluid in [place] a/p pelvic pain suspected ectopic will proceed with laparoscopy for evaluation of questionable ectopic Medications & Allergies Home Medications: Home Medication List Cariprazine HCl [Vraylar] 3 mg PO DAILY 03/29/25 [History Confirmed 03/29/25] Dextroamphetamine/Amphetamine [Mydayis ER 25 mg Capsule] 25 mg PO DAILY 03/29/25 [History Confirmed 03/29/25] Oxycodone HCl/Acetaminophen [Percocet 5-325 mg Tablet] 1 each PO Q6H PRN PRN #15 tablet MDD 4 03/29/25 [Rx] Trazodone HCl 150 mg PO QHS 03/29/25 [History Confirmed 03/29/25] Allergies/Adverse Reactions: Allergies Allergy/AdvReac Type Severity Reaction Status Date / Time No Known Drug Allergies Allergy Verified 06/25/23 08:52 - Past Medical History Past Medical History: Yes Neurological History: No Pertinent History ENT History: No Pertinent History Cardiac History: No Pertinent History Respiratory History: No Pertinent History Endocrine Medical History: No Pertinent History Musculoskelatal History: No Pertinent History GI Medical History: No Pertinent History History: No Pertinent History Pyscho-Social History: Anxiety, Depression, Other Reproductive Disorders: No Pertinent History Comment: depression, anxiety,bipolar - Female History Hx Last Menstrual Period: current Are you now?: No - Past Surgical History Past Surgical History: Yes Neuro Surgical History: No Pertinent History Cardiac History: No Pertinent History Respiratory Surgery: No Pertinent History GI Surgical History: No Pertinent History Genitourinary Surgical Hx: No Pertinent History Musculskeletal Surgical Hx: Orthopedic Surgery Female Surgical History: Dilation & Curettage Other Surgical History: L knee surgery - Social History Smoking Status: Light tobacco smoker How long have you smoked: years Exposure to second hand smoke: No Alcohol: None Drug Use: none - Social Determinants of Health Will the patient participate in the screening: Declined to provide - Physical Exam Vital Signs: Vital Signs - 24 hr Temp Pulse Resp BP BP Pulse Ox 03/29/25 14:55 94 H 18 114/78 100 03/29/25 14:46 100 03/29/25 14:25 97.9 F 56 L 18 125/80 98 03/29/25 14:19 102/76 98 03/29/25 14:14 97.9 F 125/80 100 03/29/25 13:05 78 20 118/76 100 03/29/25 12:31 125/72 03/29/25 12:30 69 13 147/92 100 03/29/25 12:00 106 H 22 118/77 99 03/29/25 11:30 93 H 20 122/93 100 03/29/25 11:00 76 20 137/89 100 03/29/25 10:30 77 15 109/70 100 03/29/25 10:10 97.9 F 77 18 125/80 100 Neurologic Exam: alert, oriented x 3 (seems confused) Gastrointestinal/Abdomen Exam: soft Pelvic Exam: not done, deferred Results - Labs Lab/Micro Results: Lab Results-Last 24 Hours 03/29/25 03/29/25 03/29/25 Range/Units 10:55 11:08 11:08 WBC 7.4 (3.98-10.04) x10^3/uL RBC 4.52 (3.93-5.22) x10^6/uL Hgb 13.5 (11.2-15.7) g/dL Hct 38.5 (34.1-44.9) % MCV 85.2 (79.4-94.8) fL MCH 29.9 (25.6-32.2) pg MCHC 35.1 (32.2-35.5) g/dL RDW 13.2 (11.7-14.4) % Plt Count 249 (182-369) x10^3/uL MPV 9.9 (9.4-12.3) fL Gran % 75.5 H (34.0-71.1) % Immature Gran % (Auto) 0.3 (0.001-0.429) % Nucleat RBC Rel Count 0.0 (0.00-0.2) % Eos # (Auto) 0.02 L (0.04-0.36) x10^3/uL Immature Gran # (Auto) 0.02 (0.001-0.031) x10^3u/L Absolute Lymphs (auto) 1.39 (1.18-3.74) x10^3/uL Absolute Monos (auto) 0.35 (0.24-0.86) x10^3/uL Absolute Nucleated RBC 0.00 (0.00-0.012) x10^3u/L Lymphocytes % 18.7 L (19.3-51.7) % Monocytes % 4.7 (4.7-12.5) % Eosinophils % 0.3 L (0.7-5.8) % Basophils % 0.5 (0.1-1.2) % Absolute Granulocytes 5.60 (1.56-6.13) x10^3/uL Basophils # 0.04 (0.01-0.08) x10^3/uL Sodium 137 (135-145) mmol/L Potassium 4.0 (3.5-5.1) mmol/L Chloride 104 (98-107) mmol/L Carbon Dioxide 22 (22-30) mmol/L Anion Gap 14.5 (5-15) MEQ/L BUN 6 L (7-17) mg/dL Creatinine 0.75 (0.52-1.04) mg/dL Estimated GFR 107.1 ML/MIN Glucose 99 (74-106) mg/dL Calcium 9.3 (8.4-10.2) mg/dL Total Bilirubin 0.60 (0.2-1.3) mg/dL AST 26 (14-36) U/L ALT 15 (0-35) U/L Alkaline Phosphatase 72 (38-126) U/L Serum Total Protein 6.9 (6.3-8.2) g/dL Albumin 4.4 (3.5-5.0) g/dL Serum HCG, Qual (NEGATIVE) Beta HCG, Quant mIU/ml Urine Color RED A (YELLOW) Urine Appearance BLOODY A (CLEAR) Urine pH 8.5 A (5-6) Ur Specific [place] 1.025 (1.005-1.025) POC Urine Protein Conf >=300 A (Negative) Urine Ketones >=160 A (NEGATIVE) Urine Nitrite POSITIVE A (NEGATIVE) Urine Bilirubin MODERATE A (NEGATIVE) Urine Urobilinogen 1 A (0-1) mg/dL Urine Leukocytes LARGE A (NEGATIVE) Urine RBC LARGE A (0-5) Eulalio/ul Urine Microscopic RBC >100 A (0-5) /HPF Urine Microscopic WBC 11-20 A (0-5) /HPF Ur Epithelial Cells None Seen (None Seen) /HPF Urine Bacteria Few A (None Seen) /HPF Urine Culture Reflexed YES (NO) Urine Glucose NEGATIVE (NEGATIVE) mg/dL ABO Group Rh Factor Antibody Screen (NEGATIVE) 03/29/25 03/29/25 03/29/25 Range/Units 11:08 11:08 13:55 WBC (3.98-10.04) x10^3/uL RBC (3.93-5.22) x10^6/uL Hgb (11.2-15.7) g/dL Hct (34.1-44.9) % MCV (79.4-94.8) fL MCH (25.6-32.2) pg MCHC (32.2-35.5) g/dL RDW (11.7-14.4) % Plt Count (182-369) x10^3/uL MPV (9.4-12.3) fL Gran % (34.0-71.1) % Immature Gran % (Auto) (0.001-0.429) % Nucleat RBC Rel Count (0.00-0.2) % Eos # (Auto) (0.04-0.36) x10^3/uL Immature Gran # (Auto) (0.001-0.031) x10^3u/L Absolute Lymphs (auto) (1.18-3.74) x10^3/uL Absolute Monos (auto) (0.24-0.86) x10^3/uL Absolute Nucleated RBC (0.00-0.012) x10^3u/L Lymphocytes % (19.3-51.7) % Monocytes % (4.7-12.5) % Eosinophils % (0.7-5.8) % Basophils % (0.1-1.2) % Absolute Granulocytes (1.56-6.13) x10^3/uL Basophils # (0.01-0.08) x10^3/uL Sodium (135-145) mmol/L Potassium (3.5-5.1) mmol/L Chloride (98-107) mmol/L Carbon Dioxide (22-30) mmol/L Anion Gap (5-15) MEQ/L BUN (7-17) mg/dL Creatinine (0.52-1.04) mg/dL Estimated GFR ML/MIN Glucose (74-106) mg/dL Calcium (8.4-10.2) mg/dL Total Bilirubin (0.2-1.3) mg/dL AST (14-36) U/L ALT (0-35) U/L Alkaline Phosphatase (38-126) U/L Serum Total Protein (6.3-8.2) g/dL Albumin (3.5-5.0) g/dL Serum HCG, Qual POSITIVE (NEGATIVE) Beta HCG, Quant 174.06 mIU/ml Urine Color (YELLOW) Urine Appearance (CLEAR) Urine pH (5-6) Ur Specific [place] (1.005-1.025) POC Urine Protein Conf (Negative) Urine Ketones (NEGATIVE) Urine Nitrite (NEGATIVE) Urine Bilirubin (NEGATIVE) Urine Urobilinogen (0-1) mg/dL Urine Leukocytes (NEGATIVE) Urine RBC (0-5) Eulalio/ul Urine Microscopic RBC (0-5) /HPF Urine Microscopic WBC (0-5) /HPF Ur Epithelial Cells (None Seen) /HPF Urine Bacteria (None Seen) /HPF Urine Culture Reflexed (NO) Urine Glucose (NEGATIVE) mg/dL ABO Group O Rh Factor POSITIVE Antibody Screen NEGATIVE (NEGATIVE) - Radiology Impressions Radiology Exams & Impressions: Radiology Procedures Category Date Time Status OB TRANSVAGINAL [US] Stat Exams 03/29/25 11:37 Completed Assessment/Plan (1) Adnexal mass Current Visit: Yes Status: Acute Code(s): N94.89 - OTH COND ASSOC W FEMALE GENITAL ORGANS AND MENSTRUAL CYCLE (2) Encounter for assessment for suspected ectopic Current Visit: Yes Status: Acute Code(s): Z32.00 - ENCOUNTER FOR TEST, RESULT UNKNOWN
[2025-03-29] MEDS ORDERED: SODIUM CHLORIDE IV ONE (15:07)
[2025-03-29] MEDS ORDERED: CEFTRIAXONE IV ONE (15:07)
[2025-03-29] MEDS ORDERED: Sensorcaine 0.25% 10 ML ONE (15:12)
[2025-03-29] MEDS ORDERED: Xylocaine-Mpf 2% 5 Ml Vial ONE (15:19)
[2025-03-29] MEDS ORDERED: BRIDION 200MG/2ML IV ONE (15:46)
--- NOTE | 2025-03-31 09:01 | OP ---
SURGERY DATE/TIME: 03/29/2024 [id number] PREOPERATIVE DIAGNOSES: 1) Left adnexal mass. 2) Hemoperitoneum with suspected ectopic . POSTOPERATIVE DIAGNOSIS: Ruptured left-sided ectopic with hemoperitoneum. PROCEDURE: Laparoscopic left salpingectomy, evacuation of hemoperitoneum approximately 200 mL. SURGEON: Ernesto Boss DO SAND CUTTER OPERATOR: Nirmala Pineda. ANESTHESIA: General. ESTIMATED BLOOD LOSS: Minimal. COMPLICATIONS: None. INDICATIONS: The risks, benefits, indications, and alternatives of the procedure were reviewed with the patient prior to the procedure. Patient understood the risk of infection, bleeding, bowel injury, bladder injury, ureteral injury, pelvic infection, thromboembolic disorder, possible future , and ectopic that may be associated with this procedure; however, desires to have this procedure as a possible means to alleviate her current medical condition. The patient was seen in the emergency room for pelvic pain with a positive test, with subsequent ultrasound showing left adnexal mass, 6 x 4 cm, with hemoperitoneum that was noted by ultrasound. The patient was then taken to the operating room with suspected ectopic . DESCRIPTION OF PROCEDURE AND FINDINGS: The patient was taken to the operating room, given general sedation, placed in the supine position where she was prepped and draped in the usual sterile fashion. A 5 mm skin incision was made in the umbilical fold and a 5 mm trocar and sleeve were advanced under direct visualization. Pneumoperitoneum was obtained with 4 L of CO2 gas. An additional incision was in the left middle quadrant region where a 5 mm trocar and sleeve were advanced under direct visualization. An additional third incision was made 2 cm above the symphysis pubis where a 10 mm incision was made and a 10 mm trocar and sleeve were advanced under direct visualization as well. A survey of the patient's pelvis revealed her to have hemoperitoneum of approximately 200 mL where it was noted for her to have a ruptured ectopic located at the left isthmic and ampullary region of the fallopian tube. From this point, suction and irrigation was taking place, evacuating approximately 200 mL of hemoperitoneum. From this point, the left adnexa was then elevated and LigaSure was placed on the mesosalpinx on the left side where it was clamped, coagulated, and cut and taken down toward the cornual region where it was clamped, coagulated, and cut and excised from the cornual region, showing that her ectopic extended from the isthmic region toward the ampullary fimbriated end as well. From this point, after excision, the tube was then removed in its entirety through the 10 mm trocar site and hemostasis was obtained. The remainder of the pelvis appeared to be within normal limits, with no gross abnormalities were noted. From this point again, suction and irrigation was then taken place and again, no bleeding was noted in the pelvic region. From this point, all instruments were removed from the patient's abdominal region and the incisions were closed with 4-0 Monocryl suture. The patient was then taken out of general anesthesia and was then taken to the recovery room in stable condition. All instruments and laps were accounted for x2.
== END 2025-03-29 14:45 | disposition home or self-care (01) ==
LOC: ED 10:10
DX: O00.102 Left tubal pregnancy without intrauterine pregnancy (principal); K66.1 Hemoperitoneum; N93.9 Abnormal uterine and vaginal bleeding, unspecified; R10.9 Unspecified abdominal pain; Z79.899 Other long term (current) drug therapy; Z72.0 Tobacco use
CPT/HCPCS: 36415; 59151; 76817; 80053; 81015; 84702; 84703; 85025; 86850; 86900; 86901; 87086; 96361; 96374; 96375; 99140; 99285; J0696; J1171; J1885; J2060; J2250; J2405; J2704; J3010